=== PATIENT | female | born 1945 ===

== ENCOUNTER → 2019-04-21 21:22 | Outpatient (ROUT) | payer MEDICARE, OTHER, MEDICAID, SELFPAY ==
[2019-04-21 21:52] LABS: Add Manual Diff / Slide Review NO; Basophils Absolute Auto 0 /uL (0-100); Basophils Percent Auto 0.3 % (0-2); Eosinophils Absolute Auto 200 /uL (0-450); Eosinophils Percent Auto 3.6 % (2-4); Hematocrit 42.2 % (36-46); Hemoglobin 14.6 g/dL (12.0-16.0); Lymphocytes Absolute Auto 1000 /uL (1100-4500); Lymphocytes Percent Auto 15.7 % (25-40); Mean Corpuscular HGB Conc 34.6 % (30-36); Mean Corpuscular Hemoglobin 32.6 PG (26-34); Monocytes Absolute Auto 600 /uL (0-900); Monocytes Percent Auto 10.2 % (3-14); Neutrophils Absolute Auto 4500 /uL (1500-7000); Neutrophils Percent Auto 70.2 % (50-75); Platelet Count 214 X10^3/uL (150-400); Red Blood Cell Count 4.49 X10^6/uL (4.0-5.2); Red Cell Distribution Width 12.6 % (11.6-14.8); White Blood Cell Count 6.4 X10^3/uL (4.5-11.0)
[2019-04-21 23:19] LABS: HEMOLYSIS < 15 (0-50); Iron 109 ug/dL (37-170)
[2019-04-21 23:21] LABS: Alanine Aminotransferase 32 IU/L (9-52); Albumin 4.3 g/dL (3.5-5.0); Albumin Globulin Ratio 1.7 (1.0-2.8); Alkaline Phosphatase 94 U/L (38-126); Aspartate Aminotransferase 38 IU/L (14-36); BUN Creatinine Ratio 16.3 (6-22); Bilirubin Total 0.4 mg/dL (0.2-1.3); Blood Urea Nitrogen 13 mg/dL (7-17); Calcium 9.6 mg/dL (8.4-10.2); Carbon Dioxide 31 mmol/L (22-32); Chloride 99 mmol/L (98-107); Estimated Glomerular Filt Rate > 60.0 mL/min (>60); Globulin 2.6 g/dL (1.7-4.1); Glucose 98 mg/dL (80-110); HEMOLYSIS < 15 (0-50); Sodium 138 mmol/L (137-145); Total Protein 6.9 g/dL (6.3-8.2)
[2019-04-22 00:50] LABS: Percent Iron Saturation 31 % (15-50); Total Iron Binding Capacity 357 ug/dL (265-497); Transferrin 281 mg/dL (206-381)
[2019-04-22 01:13] LABS: Ferritin 28.5 ng/mL (11.1-264)
[2019-04-22 01:43] LABS: Folate > 20.0 ng/mL (2.76-20.0); Vitamin B12 > 1000 pg/mL (239-931)
[2019-04-22 02:54] LABS: TSH w/ Reflex to FT4 0.89 uIU/mL (0.47-4.68)
== END ==
PROVIDERS: Visit Provider Family Medicine
DX: D50.9 Iron deficiency anemia, unspecified (principal); R53.1 Weakness; E03.9 Hypothyroidism, unspecified; R53.83 Other fatigue; Z79.899 Other long term (current) drug therapy
CPT/HCPCS: 36415; 80053; 82607; 82728; 82746; 83540; 83550; 84443; 85025